=== PATIENT | female | born 1945 | race Caucasian/White ===

== ENCOUNTER 2024-01-15 05:26 | Day surgery (SDC) | payer OTHER ==
[~2024-01-15] VITALS: Ht 160 cm; Wt 64.9 kg
== END 2024-01-15 07:50 | disposition home or self-care (01) ==
LOC: MDS 05:26 → MMU 06:24 → MDS 07:50
PROVIDERS: ATTEND Obstetrics & Gynecology
DX: N81.2 Incomplete uterovaginal prolapse (principal); Z53.8 Procedure and treatment not carried out for other reasons
CPT/HCPCS: 36415; 71045; 84132; 93005; Q0092